=== PATIENT | female | born 1930 | race Caucasian/White ===

== ENCOUNTER 2022-02-17 12:37 | Emergency (ER) | payer MEDICARE ==
[~2022-02-17] VITALS: Ht 152.4 cm; Wt 56.7 kg
[2022-02-17] MEDS ORDERED: ACETAMINOPHEN 325 MG TABLET PO ONE (13:15)
[2022-02-17] MEDS ORDERED: HYDROcodone/ACETAMIN 5-325 MG TAB (NORCO/ VICODIN) PO ONE (13:15)
--- NOTE | 2022-02-17 13:32 | NUR ---
PT bib BLS from [facility] contusion to forehead, pt states slipped in a bathtub. c/o mild headache. Denies KO, denies bloodthinners. Past Med HX high cholesterol. skin intact aaox2, mild cognitive deficet is baseline reported by BLS. Allergy Fosamax/Ryan.
--- NOTE | 2022-02-17 13:40 | NUR ---
ER at bedside examining patient.
--- NOTE | 2022-02-17 13:41 | NUR ---
Skin intact. EMT Shawanda cleansed facial injury with normal saline. NO skin laceration .
[2022-02-17 13:50] VITALS: BP_SYST 150
--- NOTE | 2022-02-17 13:58 | NUR ---
Family bedside pt with ice pack 8 minutes to frontal cranium.
--- NOTE | 2022-02-17 16:08 | NUR ---
Patient given written and verbal discharge instructions and verbalizes understanding. ER MD discussed with patient the results and treatment provided. Patient in stable condition. ID arm band removed. IV catheter removed intact and dressing applied, no active bleeding. Rx of TYLENOL given. Patient educated on pain management and to follow up with PMD. Opportunity for questions provided and answered. Medication side effect fact sheet provided.
[2022-02-17 16:09] VITALS: BP_SYST 138
== END 2022-02-17 16:09 | disposition home or self-care (01) ==
LOC: SED 12:37
DX: S02.2XXA Fracture of nasal bones, initial encounter for closed fracture (principal); S00.83XA Contusion of other part of head, initial encounter; I10 Essential (primary) hypertension; E78.5 Hyperlipidemia, unspecified; Z88.8 Allergy status to other drugs, medicaments and biological substances; Z79.899 Other long term (current) drug therapy; W18.2XXA Fall in (into) shower or empty bathtub, initial encounter; Y93.89 Activity, other specified; Y92.89 Other specified places as the place of occurrence of the external cause; Y99.8 Other external cause status
CPT/HCPCS: 70450-TC; 70486-TC; 72125-TC; 76376; 99284